=== PATIENT | male | born 1990 | race Caucasian/White ===

== ENCOUNTER 2024-02-02 08:20 | Emergency (ER) | payer BC, OTHER ==
[~2024-02-02 08:20] MED LIST: Iopamidol 612 MG/ML 100 ML Bottle IV PRN; Sodium Chloride 0.9% 100 ML IV SCH
[2024-02-02] MEDS ORDERED: Ondansetron 4 MG Tab.DIS ONE (08:37)
[2024-02-02] MEDS ORDERED: Ketorolac 30 MG/ML SDV ONE (08:37)
[2024-02-02] MEDS: Ketorolac 30 MG/ML SDV IM ONE (08:41)
[2024-02-02] MEDS: Ondansetron 4 MG Tab.DIS PO ONE (08:41)
[2024-02-02] MEDS ORDERED: HYDROmorphone 1 MG/ML Syringe ONE (09:03)
[2024-02-02] MEDS: Sodium Chloride 0.9% 1,000 ML IV SCH (09:10)
[2024-02-02] MEDS: HYDROmorphone 1 MG/ML Syringe IVPUSH ONE (09:10)
[2024-02-02] MEDS ORDERED: fentaNYL 100 MCG/2 ML SDV ONE ×2 (10:08→11:36)
[2024-02-02] MEDS: fentaNYL 100 MCG/2 ML SDV IVPUSH ONE ×2 (10:10→11:35)
[2024-02-02] MEDS ORDERED: droPERidol 5 MG/2 ML SDV ONE (10:47)
[2024-02-02] MEDS: droPERidol 5 MG/2 ML SDV IVPUSH ONE (10:48)
[2024-02-02 14:56] LABS: A/G RATIO 1.6 (1.2-2.2); ALANINE AMINOTRANSFERASE,ALT 30 U/L (12-78); ALBUMIN 4.2 g/dL (3.4-5.0); ALKALINE PHOSPHATASE 80 U/L (46-116); ANION GAP 13.8 mmol/L (5.0-14.0); ASPARTATE AMNIOTRANSFERASE,AST 19 U/L (15-37); BILIRUBIN TOTAL 0.8 mg/dL (0.2-1.0); BLOOD UREA NITROGEN,BUN 19 mg/dL (7-18); CALCIUM 8.5 mg/dL (8.5-10.1); CARBON DIOXIDE,CO2 25 mmol/L (21-32); CHLORIDE,CL 105 mmol/L (100-108); CREATININE 1.1 mg/dL (0.8-1.3); ESTIMATED GFR 90 mL/min (>60); GLUCOSE RANDOM 129 mg/dL (74-106); POTASSIUM,K 3.7 mmol/L (3.6-5.2); PROTEIN TOTAL,TP 6.8 g/dL (6.4-8.2); SODIUM,NA 144 mmol/L (140-148)
[2024-02-02 14:57] LABS: HEMATOCRIT 39.6 % (38.4-49.7); HEMOGLOBIN 13.7 g/dL (12.9-16.9); MEAN CORPUSCULAR HEMOGLOBIN 32.8 pg (31.6-35.5); MEAN CORPUSCULAR HGB CONC 34.6 g/dL (31.6-35.5); MEAN CORPUSCULAR VOLUME 94.7 fL (81.4-99.0); RED BLOOD CELL COUNT 4.18 M/uL (4.14-5.76); WHITE BLOOD CELL COUNT,WBC 4.8 K/uL (3.2-11.0)
[2024-02-02 14:59] LABS: APPEARANCE,URINE SLIGHTLY CLOUDY (CLEAR); BILIRUBIN,URINE NEGATIVE (NEGATIVE); COLOR,URINE YELLOW (YELLOW); GLUCOSE,URINE NEGATIVE (NEGATIVE); KETONES,URINE NEGATIVE (NEGATIVE); LEUKOCYTE ESTERASE,URINE NEGATIVE (NEGATIVE); NITRITE,URINE NEGATIVE (NEGATIVE); OCCULT BLOOD,URINE MODERATE (NEGATIVE); PROTEIN,URINE NEGATIVE (NEGATIVE); UROBILINOGEN,URINE 0.2 EU/dL (0.2-1.0)
[2024-02-02 15:00] LABS: AMORPHOUS SEDIMENT,URINE RARE; BACTERIA,URINE NOT SEEN; EPITHELIAL CELLS,URINE NOT SEEN; MUCUS,URINE NOT SEEN; WBC,URINE NOT SEEN (0-5)
[2024-02-02] MEDS: Iopamidol 612 MG/ML 100 ML Bottle IV SCH (17:17)
[2024-02-02] MEDS: Sodium Chloride 0.9% 80 ML IV SCH (17:17)
== END 2024-02-02 11:55 | disposition home or self-care (01) ==
LOC: JP.ED 08:20
DX: N20.0 Calculus of kidney (principal)
CPT/HCPCS: 36415; 74177; 80053; 81001; 83605; 83690; 85027; 96361; 96372; 96374; 96375; 96376; 99284; 99284-25; J1170; J1790; J1885; J3010; J3490; J7030; Q0162; Q9967

== ENCOUNTER 2024-04-21 09:30 | Emergency (ER) | payer OTHER ==
[2024-04-21] MEDS: Sodium Chloride 0.9% 1,000 ML IV ONE (11:31)
[2024-04-21 11:33] LABS: BASOPHILS ABSOLUTE AUTO 0.03 K/uL (0.00-0.10); BASOPHILS PERCENT AUTO 0.5 % (0.1-1.3); EOSINOPHILS ABSOLUTE AUTO 0.15 K/uL (0.00-0.40); EOSINOPHILS PERCENT AUTO 2.7 % (0.0-5.4); HEMATOCRIT 38.7 % (38.4-49.7); HEMOGLOBIN 13.8 g/dL (12.9-16.9); IMMATURE GRAN PERCENT AUTO 0.2 % (0.0-0.7); LYMPHOCYTES ABSOLUTE AUTO 1.68 K/uL (0.8-3.3); LYMPHOCYTES PERCENT AUTO 30.6 % (11.4-47.7); MEAN CORPUSCULAR HEMOGLOBIN 33.2 pg (31.6-35.5); MEAN CORPUSCULAR HGB CONC 35.7 g/dL (31.6-35.5); MONOCYTES ABSOLUTE AUTO 0.45 K/uL (0.20-0.90); MONOCYTES PERCENT AUTO 8.2 % (3.3-12.6); NEUTROPHILS ABSOLUTE AUTO 3.17 K/uL (1.0-7.6); NEUTROPHILS PERCENT AUTO 57.8 % (40.0-78.1); PLATELET COUNT,PLT 233 K/uL (130-375); RED BLOOD CELL COUNT 4.16 M/uL (4.14-5.76); WHITE BLOOD CELL COUNT,WBC 5.5 K/uL (3.2-11.0)
[2024-04-21 11:34] LABS: IMMATURE GRAN ABSOLUTE AUTO 0.01 K/uL (0.00-0.23)
[2024-04-21] MEDS: Ketorolac 30 MG/ML SDV IVPUSH ONE (11:40)
[2024-04-21] MEDS: Ondansetron 4 MG/2 ML SDV IVPUSH ONE (11:40)
[2024-04-21 11:46] LABS: PROTHROMBIN TIME 9.9 sec (9.2-10.6)
[2024-04-21 11:50] LABS: A/G RATIO 1.5 (1.2-2.2); ALANINE AMINOTRANSFERASE,ALT 32 U/L (12-78); ALBUMIN 4.4 g/dL (3.4-5.0); ALKALINE PHOSPHATASE 78 U/L (46-116); ANION GAP 10.9 mmol/L (5.0-14.0); ASPARTATE AMNIOTRANSFERASE,AST 21 U/L (15-37); BLOOD UREA NITROGEN,BUN 17 mg/dL (7-18); CALCIUM 9.4 mg/dL (8.5-10.1); CARBON DIOXIDE,CO2 28 mmol/L (21-32); CHLORIDE,CL 106 mmol/L (100-108); CREATININE 1.1 mg/dL (0.8-1.3); EST CRCL DRUG DOSING (CG) 100.78 mL/min; ESTIMATED GFR 90 mL/min (>60); GLUCOSE RANDOM 81 mg/dL (74-106); PROTEIN TOTAL,TP 7.4 g/dL (6.4-8.2); SODIUM,NA 145 mmol/L (140-148)
[2024-04-21 13:15] LABS: APPEARANCE,URINE CLEAR (CLEAR); BILIRUBIN,URINE NEGATIVE (NEGATIVE); COLOR,URINE YELLOW (YELLOW); GLUCOSE,URINE NEGATIVE (NEGATIVE); KETONES,URINE NEGATIVE (NEGATIVE); LEUKOCYTE ESTERASE,URINE NEGATIVE (NEGATIVE); NITRITE,URINE NEGATIVE (NEGATIVE); OCCULT BLOOD,URINE TRACE-INTACT (NEGATIVE); PROTEIN,URINE NEGATIVE (NEGATIVE); UROBILINOGEN,URINE 0.2 EU/dL (0.2-1.0)
[2024-04-21 13:20] LABS: BACTERIA,URINE NOT SEEN; EPITHELIAL CELLS,URINE NOT SEEN; WBC,URINE NOT SEEN (0-5)
== END 2024-04-21 13:42 | disposition home or self-care (01) ==
LOC: JP.ED 09:30
DX: N13.2 Hydronephrosis with renal and ureteral calculous obstruction (principal); Z90.49 Acquired absence of other specified parts of digestive tract; Z88.0 Allergy status to penicillin
CPT/HCPCS: 36415; 74176; 80053; 81001; 85025; 85610; 96361; 96374; 96375; 99284; J1885; J2405; J7030